=== PATIENT | female | born 1945 | race Two or more races ===

== ENCOUNTER 2017-04-01 22:34 | Emergency (ER) | payer MEDICARE ==
[2017-04-01 23:21] LABS: BASO # 0.1 K/uL (0.0-0.2); BASO % 0.8 % (0.0-2.0); EOS # 0.3 K/uL (0.0-0.7); EOS % 1.7 % (0.0-4.0); HEMATOCRIT 41.2 % (34.0-47.0); LYMPH # 7.6 K/uL (1.0-4.3); LYMPH % 50.2 % (20.0-40.0); MEAN CELL VOLUME 92.6 fL (81.0-99.0); MEAN CORPUSCULAR HGB CONC 33.4 g/dL (33.0-37.0); MEAN PLATELET VOLUME 8.7 fL (7.2-11.7); MONO # 1.1 K/uL (0.0-0.8); MONO % 7.6 % (0.0-10.0); NRBC % 0.1 % (0.0-2.0); RED CELL DISTRIBUTION WIDTH 13.8 % (11.5-14.5); WHITE BLOOD COUNT 15.1 K/uL (4.8-10.8)
[2017-04-01 23:29] LABS: CHLORIDE 99 mmol/L (98-107)
[2017-04-01 23:30] LABS: POTASSIUM 3.3 mmol/L (3.6-5.2); SODIUM 135 mmol/L (132-148)
[2017-04-01 23:31] LABS: GFR AFRICAN-AMERICAN > 60
[2017-04-01 23:32] LABS: ALB/GLOB RATIO 1.5 (1.0-2.1); ALKALINE PHOSPHATASE 117 U/L (38-126); ALT/SGPT 56 U/L (9-52); AST/SGOT 39 U/L (14-36); BILIRUBIN,TOTAL 0.6 mg/dL (0.2-1.3); BLOOD UREA NITROGEN 11 mg/dL (7-17); CALCIUM 8.4 mg/dl (8.6-10.4); CARBON DIOXIDE 15 mmol/L (22-30); GLUCOSE,RANDOM 127 mg/dL (65-105); TOTAL PROTEIN 7.6 g/dL (6.3-8.3)
[2017-04-01 23:33] LABS: MAGNESIUM 1.8 mg/dL (1.6-2.3)
[2017-04-01 23:50] LABS: ALCOHOL SERUM 132 mg/dl (0-10)
--- NOTE | 2017-04-02 00:24 | C.PDOC ---
History Of Present Illness Pt was at [place] [employer] with friends drinking alcohol when she started c/o SOB, Generalized weakness, and vomiting. Time Seen by Provider: 04/01/17 23:00 Chief Complaint (Nursing): Altered Mental Status History Per: Patient, EMS, Other (Friends) History/Exam Limitations: Intoxication Onset/Duration Of Symptoms: Other (tonight) Current Symptoms Are (Timing): Still Present Usual Baseline: Alert Oriented, Ambulatory Exacerbating Factor(s): Alcohol Use Use Of Anticoag/Antiplatelets: Unknown Severity: Severe Additional History Per: Prior Records Associated Symptoms: Vomiting, Weakness Past Medical History Reviewed: Historical Data, Nursing Documentation, Vital Signs Vital Signs: Last Vital Signs Temp 97 F L 04/02/17 00:52 Pulse 81 04/02/17 00:52 Resp 20 04/02/17 00:52 BP 95/50 L 04/02/17 00:52 Pulse Ox 98 04/02/17 00:52 - Medical History PMH: HTN (?) Family History: States: Unknown Family Hx - Social History Hx Alcohol Use: Yes Hx Substance Use: No Review Of Systems Review Of Systems: ROS cannot be obtained secondary to pt's inabilty to answer questions. Physical Exam - Physical Exam Appears: Other (Intoxicated. Lethargic.) Skin: Normal Color, Warm, Dry Head: Atraumatic Eye(s): bilateral: PERRL Neck: Normal ROM, No Step Off Deformity, Supple Chest: Symmetrical Cardiovascular: Rhythm Regular Respiratory: No Accessory Muscle Use, Rales (at bases?) Extremity: Normal ROM, No Pedal Edema Neurological/Psych: Eyes Open With Command, Other (Moving all extremities) Gait: Unable To Assess ED Course And Treatment - Laboratory Results Result Diagrams: 04/01/17 23:18 04/01/17 23:18 ECG: Interpreted By Me, Viewed By Me ECG Rhythm: Sinus Rhythm, Nonspecific Changes ECG Interpretation: Abnormal Interpretation Of ECG: Diffuse ST-T wave depressions. No prior EKG available for comparison. Rate From EC O2 Sat by Pulse Oximetry: 98 Pulse Ox Interpretation: Normal - Radiology CXR: Interpreted by Me, Viewed By Me CXR Interpretation: Yes: Infiltrates (?), Other (Rotated) Disposition - Disposition Disposition Time: 01:00 Condition: GUARDED - Clinical Impression Clinical Impression: Alcohol intoxication, Abnormal EKG Physician Patient Turnover Patient Signed Over To: Ajay Barrera Handoff Comments: to f/up CT scans and reassess/dispo pt.
[2017-04-02 00:53] VITALS: RESP 20
--- NOTE | 2017-04-02 01:12 | CT ---
EXAM: CT Head Without Intravenous Contrast EXAM DATE/TIME: 04/01/2017 11:56 PM CLINICAL HISTORY: 71 years old, female; Signs and symptoms; Other: Intoxicated; Additional info: Ams/intoxicated TECHNIQUE: Axial computed tomography images of the head/brain without intravenous contrast. All CT scans at this facility use one or more dose reduction techniques, viz.: automated exposure control; ma/kV adjustment per patient size (including targeted exams where dose is matched to indication; i.e. head); or iterative reconstruction technique. COMPARISON: There are no prior studies for comparison. FINDINGS: Brain: Ventricles are normal in size and configuration. There is no midline shift. There is mild prominence of sulci and gyri. There are no intra-axial or extra-axial mass lesions or areas of hemorrhage. There are no abnormal fluid collections. Munoz-white differentiation is maintained. Ventricles: See above. Bones: Cranial vault is intact. Soft unremarkable Sinuses: There is no acute sinusitis. Ears and mastoids: Middle ears and mastoids are unremarkable Orbits: Orbital contents are unremarkable. IMPRESSION: No acute intracranial abnormality
--- NOTE | 2017-04-02 01:25 | CT ---
EXAM: CT Chest Without Intravenous Contrast EXAM DATE/TIME: 04/01/2017 11:57 PM CLINICAL HISTORY: 71 years old, female; Signs and symptoms; Shortness of breath; Additional info: SOB, infiltrates on cxr vs. Chf? TECHNIQUE: Axial computed tomography images of the chest without intravenous contrast. All CT scans at this facility use one or more dose reduction techniques, viz.: automated exposure control; ma/kV adjustment per patient size (including targeted exams where dose is matched to indication; i.e. head); or iterative reconstruction technique. Coronal and sagittal reformatted images were created and reviewed. COMPARISON: There are no prior studies for comparison. FINDINGS: Lungs and Pleural Spaces: Trachea and main bronchi are patent. There is apical scarring bilaterally. There is mild prominence of interstitial markings. There is a 5.8 mm peripheral right upper lobe pulmonary nodule, image 28 series 4. There are additional smaller pleural based nodular opacities bilaterally. There are patchy groundglass opacities greatest in the right lung and right perihilar region. There is less extensive groundglass opacities in the left lung. There is a small right effusion. There is more focal air space disease at the right base. There is a posterior left diaphragmatic defect with herniation of retroperitoneal fat into the left chest. There is adjacent compressive atelectasis. There is no left effusion. Heart and Vasculature: Heart size is normal. There are coronary calcifications.Aorta and main pulmonary artery are normal in caliber.There are vascular calcifications. Thyroid: Thyroid is not optimally demonstrated. Bones/joints: There are no acute osseous abnormalities Soft tissues: unremarkable Lymph nodes: There are mildly prominent mediastinal nodes.Jennie are not optimally evaluated without contrast material. A small amount of fluid and debris in the esophagus. There is a small hiatal hernia. Upper abdomen: There are no acute abnormalities in the visualized portion of the abdomen. 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 For patient at high risk (history of smoking or of other known risk factors), recommend initial follow-up chest CT at 6-12 months, then at 18-24 months if no interval change.
[2017-04-02] MEDS ORDERED: Azithromycin 500 MG in Sodium Chloride 0.9% 250 ML IVPB STA (01:28)
[2017-04-02 02:28] VITALS: BP 98/62; PULSE 85; TEMP 98; O2SAT 100
--- NOTE | 2017-04-02 07:30 | RAD ---
PROCEDURE: CHEST RADIOGRAPH, 1 VIEW HISTORY: Intoxicated COMPARISON: None available. FINDINGS: LUNGS: Bilateral infrahilar/perihilar density may be a function of CHF though infiltrates are not excluded bilaterally. Small diaphragmatic hernia is identified the medial left base better defined in a separate chest CT performed subsequently on 04/02/2017 immediately after midnight. PLEURA: No pneumothorax or left pleural effusion. A minimal right pleural effusion not excluded versus limited atelectasis hit in the right costophrenic sulcus or scarring. CARDIOVASCULAR: Cardiac silhouette appears prominent and central vascular markings appear increased suspicious for active CHF. OSSEOUS STRUCTURES: No significant abnormalities. VISUALIZED UPPER ABDOMEN: Normal. OTHER FINDINGS: None. IMPRESSION: Active CHF is suspected though underlying limited infiltrates not excluded the perihilar/infrahilar spaces bilaterally. Further clinical correlation is advised. A small left basilar diaphragmatic hernia is appreciated medially. Please see separate chest CT report performed 04/02/2017.
--- NOTE | 2017-04-02 18:48 | CARD ---
APPROVED REPORT EKG Measurement Heart [id number] <Conclusion> Sinus rhythm with premature atrial complexes Possible Left atrial enlargement Anterolateral infarct, age undetermined ST & T wave abnormality, consider inferior ischemia Abnormal ECG
--- NOTE | 2017-04-02 18:49 | CARD ---
APPROVED REPORT EKG Measurement Heart [id number] <Conclusion> Normal sinus rhythm Possible Left atrial enlargement Marked ST abnormality, possible inferior subendocardial injury Marked ST abnormality, possible anterolateral subendocardial injury Prolonged QT Abnormal ECG
== END 2017-04-02 02:28 | disposition left against medical advice (07) ==
LOC: C.ER 22:34
DX: F10.129 Alcohol abuse with intoxication, unspecified (principal); Y90.6 Blood alcohol level of 120-199 mg/100 ml; R94.31 Abnormal electrocardiogram [ECG] [EKG]; J18.9 Pneumonia, unspecified organism
CPT/HCPCS: 70450; 71010; 71250; 80053; 80320; 83735; 83880; 84484; 85025; 85610; 85730; 93005; 96374; 96375; 99285; C9113; J2765